=== PATIENT | male | born 1985 | race African-American/Black ===

== ENCOUNTER 2023-04-29 08:29 | Outpatient (CLI) | payer OTHER, SELFPAY ==
--- NOTE | 2023-05-14 22:16 | WPDSLEEPSTUD ---
Sleep Study Date of Study: 04/29/23 Ordering Provider: Cristofer Richey APRN Interpreting Physician: Flory Riddle MD Sleep Study Type: Split Polysomnogram Height: 1.75 m Weight: 102.058 kg Body Mass Index: 33.2 Neck Circumference (inches): 18.5 [place]: 13 Reason for Sleep Study Hypersomnolence Sleep History Vasyl Noonan is a 38-year-old man with excessive daytime sleepiness. He has a family history of sleep issues, mother has obstructive sleep apnea. He has had witnessed apneas and loud snoring at least 3 years. He never awakens from sleep feeling short of breath. He occasionally wakes at night with heartburn, belching or coughing.??He constantly snores, occasionally snores loudly enough that others complain. His breathing at night scares his . He never has trouble sleeping when he has a cold. He never wakes up gasping for breath during the night. He constantly has breathing problems at night. He never sweats excessively at night. He never notices his heart pounding or beating irregularly during the night. He occasionally falls asleep during the day. He never falls asleep involuntarily, never falls asleep while driving. He never experiences loss of muscle tone with strong emotion. He never has daytime difficulty at work due to excessive sleepiness. He never feels paralyzed on waking or falling asleep. He never experiences vivid dreams upon waking or falling asleep. He never feels afraid of going to sleep. He never has nightmares. He never recalls his dreams. He occasionally has thoughts racing through his mind. He never feels sad, depressed or anxious. He occasionally notices parts of his body jerk. He never kicks during the night. He never feels crawling or aching feelings in his legs. He never feels leg pain at night. He never has morning jaw pain, never grinds his teeth at night. He never feels bothered by pain during the day, never is awakened by pain during the night. He occasionally wakes up feeling stiff in the morning, and he occasionally wakes feeling sore or achy. He never awakens with pain in his neck, spine, or joints. Normal bedtime is 9:30 p.m., falling asleep within an hour, usually not waking during the night. Wake time is 4:30 am. He typically gets 6 hours of sleep per night. On weekends, his bedtime is later, 11:30 p.m., wake time is 6:00 a.m. He rarely takes naps in the day, and sometimes he feel refreshed afterwards. He is drowsy for an hour after waking. He reports a 10 lb weight gain in the last year. He has heartburn. Habits:??Tobacco: former smoker, quit 5 years ago. Vapes daily. Caffeine: 1 serving per day. Alcohol:1-2 servings per day Recreational substances: none [facility] Surgical History Surgical History (Updated 04/14/23 @ 11:02 by Cristofer Richey APRN) H/O vasectomy Status post medial meniscectomy of left knee Social History Social History (Updated 04/14/23 @ 11:27 by Cristofer Richey APRN) Smoking status: Current every day smoker Tobacco type: e-cigarettes/vaping Drinks per week: 3 Alcohol use details: 6 pack beer on weekend, 1 drink every other day Substance use: never Living arrangements: with family Occupation/Education: occupation Additional occupation/education comments: [employer] Crop Supervisor @ [employer] Medications Home Medications Medication Instructions Recorded Confirmed Type No Home Medications 04/14/23 04/14/23 History Sleep Procedure A split night polysomnogram using the CleverSet multi-channel system recorded the standard physiologic parameters including EEG, EOG, submentalis EMG, anterior tibialis EMG, EKG, body position, nasal and oral airflow using nasal pressure sensor and thermistor. Respiratory parameters of chest and abdominal movements were recorded with Respiratory Inductance Plethysmography belts. Oxygen saturation was recorded by pulse oximetry. Video monitoring was also performed. Sleep stages, periodic limb movements, and E
[2023-05-14 22:18] VITALS: BMI 33.2
== END 2023-04-30 06:53 | disposition home or self-care (01) ==
LOC: ANHCSM 08:32
PROVIDERS: Visit Provider Nurse Practitioner Family
DX: G47.30 Sleep apnea, unspecified (principal); G47.33 Obstructive sleep apnea (adult) (pediatric)
CPT/HCPCS: 95811